=== PATIENT | male | born 1970 | race Caucasian/White ===

== ENCOUNTER → 2018-12-13 | Outpatient (CLI) | payer OTHER ==
--- NOTE | 2018-12-13 13:03 | CONS ---
CONSULTATION DATE OF SERVICE: 12/13/2018 A 48-year-old gentleman who has been evaluated at the [facility] for possible obstructive sleep apnea-hypopnea syndrome. HISTORY OF PRESENT ILLNESS SLEEP WAKE EVALUATION: Patient usual sleep schedule on working days from 10 p.m. until 7 a.m. and on weekends from around 11 p.m. until 9:00 am 7 9:00 am he does have problem with falling asleep. He has TV set in bedroom, usually sleeps on the side position with extremely loud snoring and multiple awakenings from sleep every hour and 3 episodes of nocturia at night in the morning he wakes up tired, has difficulties to pay attention, falling asleep during the day, worries about his sleep, has problems with memory, concentration, depression and anxiety [place] Sleepiness Scale significantly increased to 16. PAST MEDICAL HISTORY: Positive for anxiety, acid reflux, hyperlipidemia, neck and back problems. REVIEW OF SYSTEMS: Multiple awakenings from sleep, significant sleepiness during the day. CURRENT MEDICATIONS: Lexapro, fenofibrate, Lipitor, omeprazole, Risatroptin, Robaxin, Percocet, Lyrica. SOCIAL HISTORY: Negative for smoking. Alcohol consumption extremely rarely. PAST SURGICAL HISTORY: Five lumbar surgeries, 3 cervical surgery, bilateral knees surgeries and then bilateral shoulder surgery for rotator cuff problems. FAMILY HISTORY: Hyperlipidemia, sleep apnea. PHYSICAL EXAM: A gentleman without distress BP 125/83, HR 80, RR 16, height 5 feet 8 inches a 0.5 inches, weight 214 pounds. Body mass index 32.8, temperature 97.5, oxygen saturation at room air 95% oropharynx showed tongue protrudes midline. Extremely low position of soft palate, Mallampati 4, wide neck is 17 inches in circumference. Slight restriction of nasal breathing. ABDOMEN: Obese. PHYSICAL EXAMINATION: GENERAL A pleasant patient without any distress. VITAL SIGNS BP@@ , HR@@ , RR@@, height @@ , weight @@ , BMI @@, temperature @@ , oxygen saturation at room air @@%. HEENT PERRLA, EOMI, evaluation of oropharynx showed tongue protrudes midline. Neck Supple, no JVD. Thyroid is not palpable. LUNGS Clear to percussion and to auscultation. Good air exchange. No wheezing or rhonchi. HEART S1, S2 regular. No murmurs, gallops, or rubs. ABDOMEN Soft and nontender. Bowel sounds are present. No organomegaly appreciated. EXTREMITIES No clubbing or cyanosis. FLIGHT CONTROLS ENGINEER Awake, alert, and oriented X3. Cranial nerves 2 to 7 intact. There is no fasciculation or atrophy. noted. No focal deficits observed. IMPRESSION: 1. Multiple awakenings from sleep with nocturia, extremely low position of soft palate wide neck, sleepiness, [place] Sleepiness Scale 16; obstructive sleep apnea- hypopnea syndrome. 2. Obesity, body mass index 32.83. 3. history of anxiety for acid reflux. 4. History of anxiety. 5. Hyperlipidemia. 6. Status post several neck surgery in the level C3 and C7. 7. Status post 5 lumbar surgeries. 8. Status post bilateral shoulder surgery for rotator cuff problems. PLAN: 1. Polysomnography for evaluation of patient's breathing during sleep. 2. CPAP/BiPAP titration if sleep study confirms obstructive sleep apnea-hypopnea syndrome. 3. Preferable position during sleep on the side. 4. No driving if patient feels any sleepiness. 5. I will see patient for follow up visit to explain results of testing and following plan. Thank you very much for referring this patient for consultation. Sincerely. Toy Prakash MD, PhD, FAASM Diplomat of [place] [employer] [place] [employer] Cook [employer] of [facility] [place] MMODL / IJN: [id number] /
== END | disposition home or self-care (01) ==
LOC: SLEEP 11:42
PROVIDERS: ATTEND Internal Medicine
DX: G47.33 Obstructive sleep apnea (adult) (pediatric) (principal); E66.9 Obesity, unspecified; E78.5 Hyperlipidemia, unspecified; Z68.32 Body mass index [BMI] 32.0-32.9, adult; Z87.19 Personal history of other diseases of the digestive system; Z86.59 Personal history of other mental and behavioral disorders; Z98.890 Other specified postprocedural states; Z79.899 Other long term (current) drug therapy
CPT/HCPCS: 99211

== ENCOUNTER → 2019-02-28 | Outpatient (CLI) | payer OTHER ==
--- NOTE | 2019-02-28 12:00 | SLS ---
SLEEP STUDY DATE OF SERVICE: 02/28/2019 A 48-year-old gentleman who has been followed in the Sleep Center for treatment of obstructive sleep apnea-hypopnea syndrome. Recently, patient had diagnostic polysomnogram and CPAP titration. I discussed results of sleep studies with patient in detail. Polysomnogram showed severe sleep apnea during titration with a high pressure 9. Apnea- hypopnea index reduced to 4.5. Patient received CPAP unit with a pressure 9 and is able to use it every night, but sometimes still snore with the machine and sometimes reading of apnea-hypopnea index showed high numbers. I checked his CPAP unit. CPAP pressure is 9 cm of water. Usage is 100% of nights more than 4 hours with average usage 6.9 hours. Leak 23 L/minute. Apnea-hypopnea index for the last night 3.5,. average for the last month 10.2. [place] Sleepiness Scale today is 17. Patient continued to feel sleepiness. MEDICATIONS: Lexapro, fenofibrate, Lipitor, omeprazole, , Robaxin, Percocet, Lyrica. PHYSICAL EXAM: Patient in no distress. BP 120/70, HR 80, RR 16, weight 221, temp 97.5, oxygen saturation at room air 96%. OROPHARYNX: Extremely low soft palate, Mallampati 4. ABDOMEN: Obese, Neck Supple, no JVD. Thyroid is not palpable. LUNGS Clear to percussion and to auscultation. Good air exchange. No wheezing or rhonchi. HEART S1, S2 regular. No murmurs, gallops, or rubs. EXTREMITIES No clubbing or cyanosis. MANAGER RECRUITMENT Awake, alert, and oriented X3. Cranial nerves 2 to 7 intact. There is no fasciculation or atrophy. noted. No focal deficits observed. IMPRESSION: 1. Extremely severe obstructive sleep apnea-hypopnea syndrome; apnea-hypopnea index 107.4 with oxygen saturation to 75.4%, significantly improved on CPAP with a pressure of 9, but sometimes patient experiencing snoring and narrow reading from the machine showed slightly increased apnea-hypopnea index to 10 for the left month but normal for the last night. Patient demonstrated 100% compliance with treatment benefitting from treatment. 2. Obesity. 3. History of anxiety. 4. Acid reflux. 5. Hyperlipidemia. 6. Status post several neck surgeries. 7. Status post five lumbar surgeries. 8. Status post bilateral shoulder surgery for rotator cuff problems. PLAN: 1. Patient will continue to use CPAP equipment every night for the whole night. 2. I will change the regimen over the pressure to automatic with a maximal pressure of 15 cm of water. 3. Losing weight. 4. Sleep hygiene with regular time in bed for at least 7-1/2 to 8 hours. 5. No driving if feeling sleepiness. Thank you very much for allowing me to participate in the management of your patient. Sincerely Toy Prakash MD, PhD, FAASM Diplomat of [place] [employer] [place] [employer] Director Of Quality Improvement of [facility] [place] MMODL / IJN: [id number] /
== END ==
LOC: SLEEP 09:57
PROVIDERS: ATTEND Internal Medicine
DX: G47.33 Obstructive sleep apnea (adult) (pediatric) (principal); E66.9 Obesity, unspecified; F32.9 Major depressive disorder, single episode, unspecified; K21.9 Gastro-esophageal reflux disease without esophagitis; E78.5 Hyperlipidemia, unspecified; Z98.890 Other specified postprocedural states; Z99.89 Dependence on other enabling machines and devices; Z79.899 Other long term (current) drug therapy; Z79.891 Long term (current) use of opiate analgesic

== ENCOUNTER → 2019-03-08 | Outpatient (CLI) | payer OTHER ==
[2019-03-08 10:08] VITALS: BP 121/81; PULSE 73; RESP 16; TEMP 97.8; BMI 30.8
--- NOTE | 2019-03-08 10:47 | P.GSHP ---
History of Present Illness H&P Date: 03/08/19 Chief Complaint: breast pain The patient is a 48-year-old white male with a complaint of left nipple erection and pain. The patient states this has been ongoing for several years but has gotten worse recently. If he hits that all the pain is worse. He did have an ultrasound performed on 6718 this did not reveal any dominant mass or unusual fluid collection in the left retroareolar region. He has not noted any lumps or masses in his testicles. The patient has no pain in the right breast, and he has no lumps or masses otherwise in either breast. The patient does not drink any caffeinated beverages. He does not smoke. He is not exposed to secondhand smoke on a regular basis. Family History: mother: lung cancer smoker sister: small cell lung cancer, smoker paternal grandmother: scalp cancer Surgical history: cervical and lumbar fusions bilateral shoulder and knee surgery Right mastoidectomy Medical history: 1. High cholesterol 2. reflux on omeprazole for a year Social history: Smoke: Used to chew tobacco does not smoke now Alcohol: Negative Drugs: Negative - Constitutional Comment: BMI 30.8 Constitutional: Denies chills, Denies fever - EENT Comment: wears glasses Eyes: bilateral decreased vision, denies pain Ears: right: decreased hearing, bilateral: tinnitus Ears, nose, mouth and throat: Reports headache, Denies sore throat - Breasts Breasts: bilateral: as per HPI - Cardiovascular Comment: High cholesterol Cardiovascular: Denies chest pain, Denies shortness of breath - Respiratory Respiratory: Denies cough, Denies 7 - Gastrointestinal Comment: reflux - Genitourinary (Male) Genitourinary: Denies dysuria, Denies hematuria - Musculoskeletal Comment: Cervical and lumbar disc disease - Integumentary Integumentary: Denies pruritus, Denies rash - Neurological Neurological: Reports numbness, Reports weakness - Psychiatric Psychiatric: Reports anxiety, Reports depression - Endocrine Endocrine: Denies fatigue, Denies weight change - Hematologic/Lymphatic Comment: none - Allergic/Immunologic Allergic/Immunologic: Reports as per HPI Past Medical History History of Any Multi-Drug Resistant Organisms: None Reported Smoking Status: Never smoker Medications and Allergies Home Medications Medication Instructions Recorded Confirmed Type Atorvastatin [Lipitor] 20 mg PO DAILY 03/08/19 03/08/19 History Escitalopram [Lexapro] 20 mg PO DAILY 03/08/19 03/08/19 History Fenofibrate 40 mg PO DAILY 03/08/19 03/08/19 History Rizatriptan Benzoate [Rizatriptan] 10 mg PO ONCE PRN 03/08/19 03/08/19 History Allergies Allergy/AdvReac Type Severity Reaction Status Date / Time No Known Allergies Allergy Unverified 03/08/19 10:08 Surgical - Exam Vital Signs Temp Pulse Resp BP Pulse Ox 97.8 F 73 16 121/81 95 03/08/19 10:04 03/08/19 10:04 03/08/19 10:04 03/08/19 10:04 03/08/19 10:04 BMI 30.8 - General well developed, well nourished, no distress - Eyes normal ocular movement - ENT no hearing loss - Neck no masses, trachea midline - Respiratory normal expansion, normal respiratory effort, clear to auscultation - Cardiovascular Rhythm: regular Heart Sounds: normal: S1, S2 - Abdomen Abdomen: soft, non tender, no guarding, no rigid, no rebound - Genitourinary no testicular masses normal penis with no external lesions, testicles present, testicles non-tender - Integumentary tattoos new nevis right shoulder - Neurologic no disoriented, no combative - Musculoskeletal normal gait, normal posture - Psychiatric oriented to time, oriented to person, oriented to place, speech is normal, memory intact Breast examination: Right breast: Multi-positional exam no dominant masses or nodules of concern Right axilla: No adenopathy of concern left breast: Multiple positional exam no dominant masses or nodules of concern Left nipple is incorrect and tender to palpation no masses identified Left axilla: No adenopathy of concern Results Ultrasound of left breast Assessment and Plan Assessment: Impression: 1. Mastodynia left nipple area for several years 2. Erection left nipple 3. Fibrocystic changes in breast 4. Family history of cancer 5. High cholesterol 6. Anxiety depression 7. Reflux 8. Obesity 9. No evidence of breast cancer 10. nipple Pain is only on the left side ? eitology Plan: 1. Symptomatic management at this time uncertain as to the etiology of the left nipple discomfort and erection 2. Close surveillance repeat evaluation in 6 months 2. Medical management of medical conditions Cc: Dr. Escamilla
== END ==
LOC: WWCWWP 09:58
PROVIDERS: ATTEND Surgery
DX: Z53.9 Procedure and treatment not carried out, unspecified reason (principal)

== ENCOUNTER → 2019-05-02 | Outpatient (CLI) | payer OTHER ==
--- NOTE | 2019-05-02 12:25 | SFUN ---
SLEEP CENTER FOLLOW UP NOTE DATE OF SERVICE: 05/02/2019 This 48-year-old gentleman had been followed in sleep center for treatment of obstructive sleep apnea-hypopnea syndrome. During his last visit because apnea-hypopnea index was increased to 10.2, I increased maximal range of pressure to 15. Patient continued to use CPAP equipment without significant problems related to mask fitting, pressure or humidification, but he still feels sleepiness during the day. [place] Sleepiness Scale significantly increased to 14. I checked his CPAP unit, range of the pressure 6 to 15, average pressure 12.2. Usage is 30 out of 30 nights and 27 out 30 nights for more than 4 hours with average usage is 6.5 hours which is good compliance. Apnea-hypopnea index for the last month is 3.3, which is normal and for the last night only 1.6. MEDICATIONS: Lexapro, fenofibrate, Lipitor, omeprazole, Robaxin, Percocet, Lyrica. PHYSICAL EXAMINATION: During physical exam, patient in no distress. VITAL SIGNS: BP 124/90, HR 80, RR 16, weight 223, temp 98.5. HEENT: PERRLA, EOMI. Oropharynx extremely low position of soft palpate. Mallampati 4. NECK: Supple, no JVD. Thyroid is not palpable. LUNGS: Clear to percussion and to auscultation. Good air exchange. No wheezing or rhonchi. HEART: S1, S2 regular. No murmurs, gallops, or rubs. ABDOMEN: Slightly obese. EXTREMITIES: No clubbing or cyanosis. CYLINDER STEAMER: Awake, alert, and oriented X3. Cranial nerves 2 to 7 intact. There is no fasciculation or atrophy. noted. No focal deficits observed. IMPRESSION: 1. Obstructive sleep apnea-hypopnea syndrome. Patient demonstrated good compliance with treatment benefitting from treatment. 2. The patient continued to feel sleepiness during the day. [place] Sleepiness Scale significantly increased to 14. Differential diagnosis would include additional diagnosis of hypersomnia. 3. Obesity. 4. History of anxiety. 5. Acid reflux. 6. Hyperlipidemia. 7. Status post several neck surgeries. 8. Status post five lumbar surgeries. Patient is preparing for another lumbar surgery. 9. Status post bilateral shoulder surgery for rotator cuff problems. PLAN: 1. Multiple sleep latency test for objective evaluation of symptoms of excessive daytime sleepiness after the night on treatment with CPAP. 2. Losing weight. 3. Sleep hygiene with regular time in bed for 7-1/2 hours. 4. No driving if feeling sleepiness. 5. Patient will continue to use CPAP equipment every night for the whole night. Thank you very much for allowing me to participate in management of your patient. Sincerely, Toy Prakash MD, PhD, FAASM Diplomat of [place] [employer] [place] [employer] Hand Tapper of [facility] [place] MMODL / KEVINN: [id number] /
== END | disposition home or self-care (01) ==
LOC: SLEEP 11:08
PROVIDERS: ATTEND Internal Medicine
DX: G47.33 Obstructive sleep apnea (adult) (pediatric) (principal); K21.9 Gastro-esophageal reflux disease without esophagitis; E78.5 Hyperlipidemia, unspecified; E66.9 Obesity, unspecified; Z98.890 Other specified postprocedural states; Z86.59 Personal history of other mental and behavioral disorders; Z99.89 Dependence on other enabling machines and devices

== ENCOUNTER → 2019-09-06 | Outpatient (CLI) | payer OTHER ==
[2019-09-06 14:54] VITALS: BP 143/85; PULSE 85; RESP 18; TEMP 97.9
--- NOTE | 2019-09-06 15:45 | P.PN ---
Subjective Progress Note Date: 09/06/19 Principal diagnosis: nipple pain/erection The patient is a 48-year-old white male with a complaint of left nipple erection and pain. The patient states this has been ongoing for several years but has gotten worse recently. If he hits that all the pain is worse. He did have an ultrasound performed on 6719 this did not reveal any dominant mass or unusual fluid collection in the left retroareolar region. He has not noted any lumps or masses in his testicles. The patient has no pain in the right breast, and he has no lumps or masses otherwise in either breast. The patient does not drink any caffeine beverages. He does not smoke. He is not exposed to secondhand smoke on a regular basis. The patient states he has had no change in the nipple erection or discomfort. It occurs on a daily basis. It is asymmetric on the right side. It occurs with any pressure or anything rubs against it. It is worse in the warm weather. This has been occurring for years. caffeine: occasional smoke: none chocolate: none Family History: mother: lung cancer smoker sister: small cell lung cancer, brain cancer smoker paternal grandmother: scalp cancer Surgical history: cervical and lumbar fusions bilateral shoulder and knee surgery Right mastoidectomy lumbar fusion in June 2019 [id number] Medical history: 1. High cholesterol 2. reflux on omeprazole for a year Social history: Smoke: Used to chew tobacco does not smoke now Alcohol: Negative Drugs: Negative - Constitutional Comment: BMI 30.8 Constitutional: Denies chills, Denies fever - EENT Comment: wears glasses Eyes: bilateral decreased vision, denies pain Ears: right: decreased hearing, bilateral: tinnitus Ears, nose, mouth and throat: Reports headache, Denies sore throat - Breasts Breasts: bilateral: as per HPI - Cardiovascular Comment: High cholesterol Cardiovascular: Denies chest pain, Denies shortness of breath - Respiratory Respiratory: Denies cough - Gastrointestinal Comment: reflux - Genitourinary (Male) Genitourinary: Denies dysuria, Denies hematuria - Musculoskeletal Comment: Cervical and lumbar disc disease - Integumentary Integumentary: Denies pruritus, Denies rash - Neurological Neurological: Reports numbness, Reports weakness - Psychiatric Psychiatric: Reports anxiety, Reports depression - Endocrine Endocrine: Denies fatigue, Denies weight change - Hematologic/Lymphatic Comment: none - Allergic/Immunologic Allergic/Immunologic: Reports as per HPI Past Medical History History of Any Multi-Drug Resistant Organisms: None Reported Smoking Status: Never smoker Objective - Vital Signs Vital signs: Vital Signs Temp 97.9 F 09/06/19 14:50 Pulse 85 09/06/19 14:50 Resp 18 09/06/19 14:50 BP 143/85 09/06/19 14:50 Pulse Ox 98 09/06/19 14:50 Intake & Output 09/05/19 09/06/19 09/06/19 18:59 06:59 18:59 Weight 97.522 kg - Exam BMI 30.8 - Constitutional General appearance: Present: average body habitus - EENT Eyes: Present: EOMI ENT: Present: hearing grossly normal - Neck Details: no adenopathy of concern Neck: Present: normal ROM - Respiratory Respiratory: bilateral: CTA - Cardiovascular Rhythm: regular Heart sounds: normal: S1, S2 - Gastrointestinal Gastrointestinal Comment(s): no organomegaly General gastrointestinal: Present: normal bowel sounds, soft - Integumentary Integumentary: Present: normal turgor - Musculoskeletal Musculoskeletal: Present: gait normal - Psychiatric Psychiatric: Present: A&O x's 3, appropriate affect, intact judgment & insight - Additional findings Additional findings: breast exam: Inspection: No skin lesions of concern, the left nipple is slightly larger than the right nipple otherwise not been of concern nipples are not inverted Palpation: Right breast: Multi-positional exam changes of gynecomastia no discrete dominant masses or nodules of concern Right axilla: No adenopathy of concern Left breast: Multi-positional exam gynecomastia, left nipple slightly larger than the right nipple there is nothing palpable of concern at this time it is not erect on today's exam Assessment and Plan Assessment: Impression: 1. Mastodynia left nipple for several years 2. Erection left nipple intermittently 3. Fibrocystic changes in breast 4. Family history of cancer 5. High cholesterol 6. Anxiety/depression 7. Reflux 8. No evidence of breast cancer Plan: 1. Patient is going to stop his caffeine intake 2. Patient is going to implement primrose oil 3. Repeat left breast ultrasound in 6 months time 4. Patient is anything of concern he will call us sooner 5. Position exam in 6 months Cc: Dr. Francine Encounter 20 minutes > 50% of time spent in counselling and planning Time with Patient: Less than 30
== END | disposition home or self-care (01) ==
LOC: WWCWWP 14:39
PROVIDERS: ATTEND Surgery
DX: Z53.9 Procedure and treatment not carried out, unspecified reason (principal)

== ENCOUNTER → 2020-03-09 | Outpatient (CLI) | payer OTHER ==
--- NOTE | 2020-03-09 10:50 | USB ---
Reason for exam: clinical finding. Indicated problem(s): pain in the left breast. Physical Findings: Nurse Summary: Patient complains of left nipple pain x 1 year (nurse mj). US Breast LT Technologist: Danica Salas Left complete breast ultrasound includes all four quadrants, the retroareolar region and axilla. Finding demonstrates no cystic or solid lesion seen. These results were verbally communicated with the patient and result sheet given to the patient on 03/09/20. ASSESSMENT: Negative, BI-RAD 1 RECOMMENDATION: Clinical management of the left breast. Manage patient on a clinical basis.
== END ==
LOC: RADUSWWP 10:09
PROVIDERS: ATTEND Surgery
DX: N64.4 Mastodynia (principal)

== ENCOUNTER → 2020-11-19 | Outpatient (CLI) | payer OTHER ==
--- NOTE | 2020-11-20 06:06 | SFUN ---
SLEEP CENTER FOLLOW UP NOTE DATE OF SERVICE: 11/19/2020 INTERVAL HISTORY: A 50-year-old gentleman who has been followed in the Sleep Center for treatment of obstructive sleep apnea-hypopnea syndrome. I saw the patient about 1 and half years ago. He continued to use his CPAP equipment every night. Sleeps well with the machine, but he continued to feel sleepiness during the day in a significant range. According to patient, as soon as he is not doing anything he is falling asleep. [place] Sleepiness Scale today is in very high range of 19. I checked CPAP unit. Range of the pressure is 6-15 with average pressure 12.5 and usage 28/30 nights for more than 4 hours with average usage is 7.7 hours per night. Leak is 20 L/minute. Apnea-hypopnea index is in normal range 2.3. MEDICATIONS: Fenofibrate, Robaxin. PHYSICAL EXAMINATION: GENERAL: Patient without any distress. VITAL SIGNS: BP 132/88, HR 84 , RR 12, height 5'9", weight 228.4, temperature 98.2, oxygen saturation at room air 97%. HEENT: PERRLA, EOMI, evaluation of oropharynx showed tongue protrudes midline. Extremely low position of soft palate, Mallampati IV. NECK: Supple, no JVD. Thyroid is not palpable. LUNGS: Clear to percussion and to auscultation. Good air exchange. No wheezing or rhonchi. HEART: S1, S2 regular. No murmurs, gallops, or rubs. ABDOMEN: Slightly obese, soft and nontender. Bowel sounds are present. No organomegaly appreciated. EXTREMITIES: No clubbing or cyanosis. QUALITY ASSURANCE INSPECTOR: Awake, alert, and oriented X3. Cranial nerves 2 to 7 intact. There is no fasciculation or atrophy. noted. No focal deficits observed. IMPRESSION: 1. Obstructive sleep apnea-hypopnea syndrome. Patient demonstrated good compliance with treatment, benefitting from treatment. 2. The patient continues to feel significant sleepiness during the day. [place] Sleepiness Scale increased to 19. Differential diagnosis include additional diagnosis of hypersomnia or narcolepsy. Positive family history of narcolepsy. 3. Obesity. 4. History of anxiety. 5. Acid reflux. 6. Hyperlipidemia. 7. Status post several neck surgeries. 8. Status post 5 lumbar surgeries. 9. Status post bilateral shoulder surgery for rotator cuff problems. PLAN: Multiple sleep latency test after the night on CPAP for objective evaluation of patient's symptoms of excessive daytime sleepiness. 1. Patient will continue to use PAP equipment every night for the whole night. 2. Sleep hygiene with regular time in bed for at least 7-1/2 to 8 hours. 3. Precautions related to driving. No driving if feeling sleepiness. 4. I will maintain all necessary prescription for PAP supplies including mask, tube, filters. 5. Watching weight. 6. Followup visit after sleep study to discuss results and plan. Thank you very much for allowing me to participate in the management of your patient. Sincerely, Toy Prakash MD, PhD, FAASM Diplomat of [place] [employer] [place] [employer] Medicine Tank Truck Driver of [facility] [place] MMODL / KEVINN: [id number] /
== END ==
LOC: SLEEP 15:26
PROVIDERS: ATTEND Internal Medicine
DX: G47.33 Obstructive sleep apnea (adult) (pediatric) (principal); E66.9 Obesity, unspecified; K21.9 Gastro-esophageal reflux disease without esophagitis; E78.5 Hyperlipidemia, unspecified; F41.9 Anxiety disorder, unspecified; Z98.890 Other specified postprocedural states; Z99.89 Dependence on other enabling machines and devices

== ENCOUNTER → 2021-02-03 | Outpatient (CLI) | payer OTHER ==
--- NOTE | 2021-02-03 21:25 | SFUN ---
SLEEP CENTER FOLLOW UP NOTE DATE OF SERVICE: 02/03/2021 50-year-old gentleman has been followed in Sleep Center for treatment of obstructive sleep apnea-hypopnea syndrome and also to discuss results of the recently done multiple sleep latency test after night on CPAP therapy. I discussed results of the sleep study with the patient in detail. During the night on the CPAP therapy, his respiration was fully controlled and sleep efficiency was high 92.2%. On the following day after that, the patient has MSLT consisted of 4 naps and mean sleep latency was very short only 3.6 minutes and 2 sleep onset REM periods have been documented during MSLT, which indicate possibly narcolepsy. [place] Sleepiness Scale today 14. MEDICATIONS: Fenofibrate, Robaxin. PHYSICAL EXAMINATION: GENERAL: Patient in no distress. BP 163/109, HR 94, RR 15, temperature 97.3, oxygen saturation at room air 98%. Weight 226.6 pounds. HEENT: PERRLA, EOMI. Oropharynx low position of soft palate. NECK: Supple, no JVD. Thyroid is not palpable. LUNGS: Clear to percussion and to auscultation. Good air exchange. No wheezing or rhonchi. HEART: S1, S2 regular. No murmurs, gallops, or rubs. ABDOMEN: Soft and nontender. Bowel sounds are present. No organomegaly appreciated. EXTREMITIES: No clubbing or cyanosis. SOLUTION DESIGN ENGINEER: Awake, alert, and oriented X3. Cranial nerves 2 to 7 intact. There is no fasciculation or atrophy. noted. No focal deficits observed. IMPRESSION: 1. Obstructive sleep apnea-hypopnea syndrome on full control with CPAP. Presently patient's CPAP unit broken. 2. Pathological sleepiness on MSLT. Mean sleep latency is 3.6 minutes with 2 sleep onset REM periods, which indicate possible narcolepsy. 3. Obesity. 4. Anxiety. 5. Acid reflux. 6. Hyperlipidemia. 7. Status post five lumbar surgeries. 8. Status post bilateral shoulder surgery. PLAN: 1. Prescription for new CPAP unit automatic regimen pressure 5-15 and Brevida nasal pillow mask and all necessary CPAP supplies. 2. Prescription for Adderall 5 mg one tablet in the morning and one tablet in early afternoon to prevent sleepiness. Necessary dose will be adjusted. 3. Sleep hygiene with regular time in bed for 7-1/2 to 8 hours. 4. Daytime naps permitted. 5. Precautions related to driving. No driving while feeling sleepiness. 6. Follow-up visit in 2 months to review to check the patient compliance with a new CPAP unit and make any necessary adjustments related to CPAP therapy and evaluate response on treatment with Adderall. Thank you very much for allowing me to participate in management of your patient. Sincerely, Toy Prakash MD, PhD, FAASM Diplomat of [employer] of [employer] Medicine Care Professional of [facility] [place] MMODL / RELL: [id number] /
== END ==
LOC: SLEEP 11:33
PROVIDERS: ATTEND Internal Medicine
DX: G47.33 Obstructive sleep apnea (adult) (pediatric) (principal); E66.9 Obesity, unspecified; K21.9 Gastro-esophageal reflux disease without esophagitis; F41.9 Anxiety disorder, unspecified; E78.5 Hyperlipidemia, unspecified; Z98.890 Other specified postprocedural states; Z99.89 Dependence on other enabling machines and devices

== ENCOUNTER → 2022-03-23 | Outpatient (CLI) | payer OTHER ==
--- NOTE | 2022-03-23 12:15 | P.PN ---
Subjective DATE: 03/23/2022 FOLLOW UP VISIT. Patient with obstructive sleep apnea hypopnea syndrome and possible narcolepsy return to sleep center for follow-up visit. Information from previous visit have been reviewed. Patient is on Adderall 30 mg twice a day for treatment of significant excessive daytime sleepiness confirmed by multiple sleep latency test. Patient is using PAP equipment every night for the whole night, getting PAP supplies in time. The patient does not have significant problems with the mask, PAP unit and humidification. She feels that when he is starting to use CPAP unit the pressure is too low. [place] sleepiness scale is 19. I checked PAP unit. PAP unit pressure 6-15 average 11.9 cm H2O. Usage is 93 % for more then 4 hours, average 7.5 hours per night. Leak is 13.7 l/m, which is in acceptable range. Apnea Hypopnea Index is 1.5, which is normal. A ramp is 30 minutes started at 6 cm of water. MEDICATIONS:1. Adderall 20 mg 3 tablets a day, patient take 1-1/2 tablet in the morning and 1-1/2 tablet at to 1 PM. 2. Fenofibrate once a day 3. Atorvastatin once a day 4. Rizatriptan as needed During physical exam: GENERAL: A pleasant patient without any distress. VITAL SIGNS: BP 159/101, HR 96, RR 16, weight 214.8, temperature 97.5, oxygen saturation at room air 100 % . HEENT: PERRLA, EOMI.low position of soft palate. NECK: Supple. No JVD. LUNGS: Clear to percussion and to auscultation. Good air exchange. No wheezing or rhonchi. HEART: S1, S2 regular. ABDOMEN: Soft and nontender. Slightly obese EXTREMITIES: No clubbing or cyanosis. DUCT MAKER: Awake, alert, and oriented x3. No focal deficit. Impressions: 1. Obstructive sleep apnea-hypopnea syndrome. Patient demonstrated great compliance with treatment, benefiting from treatment. 2. Narcolepsy confirmed by multiple sleep latency test with mean sleep latency 3.6 minutes and to sleep onset REM periods. Patient is on treatment with Adderall presently at maximal dose 60 mg a day. That allowed him to control his alertness. 3. Obesity. 4. Anxiety. 5. Acid reflux. 6. Hyperlipidemia. 7. Status post bilateral shoulder surgery. 8. Status post 5 lumbar surgeries. Plan: 1. Continue using PAP equipment every night for the whole night. 2. To change air filter at least 1-2 times per month. 3. PAP unit should stay lower then position of the head. 4. Advised patient to remove all remaining water from humidifier canister daily and make it dry after each usage. Refill canister with fresh distilled water before each usage. 5. Sleep hygiene with regular time in bed for at least 8 hours. 6. Precautions related to driving. No driving if feel any sleepiness. 7. I will maintain prescription for PAP supplies including mask, tube, filters. 8. Follow up visit in 6 months or earlier if patient has any problems. 9. Watching and losing weight. 10. Continue Adderall 30 mg at 8 AM and 30 mg at 1 PM. Prescription for Adderall 20 mg 90 tablets per months. 11. Low sodium diet, monitoring blood pressure. Thank you very much for allowing me to participate in the management of your patient. Toy Prakash MD, PhD, FAASM. Diplomat of [place], Sleep Medicine Board by [place] Medicine Masonry Installer of [facility] [place]
== END ==
LOC: SLEEP 10:51
PROVIDERS: ATTEND Internal Medicine
DX: G47.33 Obstructive sleep apnea (adult) (pediatric) (principal); E66.9 Obesity, unspecified; F41.9 Anxiety disorder, unspecified; E78.5 Hyperlipidemia, unspecified; Z98.890 Other specified postprocedural states; Z99.89 Dependence on other enabling machines and devices; Z79.899 Other long term (current) drug therapy

== ENCOUNTER → 2023-03-29 | Outpatient (CLI) | payer OTHER ==
--- NOTE | 2023-03-29 11:50 | P.PN ---
Subjective DATE: 03/29/2023 FOLLOW UP VISIT. Patient with obstructive sleep apnea hypopnea syndrome and narcolepsy return to sleep center for follow-up visit. Information from previous visit have been reviewed. Patient is using PAP equipment every night for the whole night, getting PAP supplies in time. The patient does not have significant problems with the mask, PAP unit and humidification. Sometimes patient feels that is not enough pressure. [place] sleepiness scale is high 19. I checked information from PAP unit. PAP unit pressure 8-17, average 12.0 cm H2O. Usage is 100 % for more then 4 hours, average 7.5 hours per night. Leak is 17.2 l/m, which is in acceptable range. Apnea Hypopnea Index is 1.2, which is normal. MEDICATIONS:1. Adderall 30 mg twice a day 2. Atorvastatin 20 mg once a day 3. Fenofibrate 160 mg once a day 4. Butrans patch 5. Oxycodoneacetaminophen 96039 6. Pregabalin 300 mg capsules once a day 7. Alprazolam During physical exam: GENERAL: A pleasant patient without any distress. VITAL SIGNS: BP 132/87, HR 82, RR 14 , weight 214, temperature 98.0, oxygen saturation at room air 97 % . HEENT: PERRLA, EOMI.low position of soft palate, Mallapati 3 . NECK: Supple. No JVD. LUNGS: Clear to percussion and to auscultation. Good air exchange. No wheezing or rhonchi. HEART: S1, S2 regular. ABDOMEN: Soft and nontender. Obese EXTREMITIES: No clubbing or cyanosis. GLOBE CHANGER: Awake, alert, and oriented x3. No focal deficit. Impressions: 1. Obstructive sleep apnea-hypopnea syndrome. Patient demonstrated great compliance with treatment, benefiting from treatment. 2. Narcolepsy, confirmed by multiple sleep latency test, mean sleep latency 3.6 minutes and to sleep onset REM periods. 3. Back problems, back pain, patient is preparing for back surgery. Status post 5 lumbar surgeries. 4. History of anxiety. 5. Obesity, patient lost 3 pounds since previous visit. 6. Hyperlipidemia. 7. Acid reflux. 8. Status post bilateral shoulder surgery. Plan: 1. Continue using PAP equipment every night for the whole night. 2. To change air filter at least 1-2 times per month. 3. PAP unit should stay lower then position of the head. 4. Advised patient to remove all remaining water from humidifier canister daily and make it dry after each usage. Refill canister with fresh distilled water before each usage. 5. Sleep hygiene with regular time in bed for at least 8 hours. 6. Precautions related to driving. No driving if feel any sleepiness. 7. I will maintain prescription for PAP supplies including mask, tube, filters. 8. Watching and losing weight. 9. Follow up visit in 6 months or earlier if patient has any problems. Thank you very much for allowing me to participate in the management of your patient. Toy Prakash MD, PhD, FAASM. Diplomat of [place] Board of [employer] Medicine, Sleep Medicine Board by [place] Board of Internal Medicine Bar Tacker Sewing Machine of [facility] [place]
== END ==
LOC: 3 N SLEEP 11:19
PROVIDERS: ATTEND Internal Medicine
DX: G47.33 Obstructive sleep apnea (adult) (pediatric) (principal); G47.419 Narcolepsy without cataplexy; F41.9 Anxiety disorder, unspecified; E78.5 Hyperlipidemia, unspecified; M54.50 Low back pain, unspecified; E66.9 Obesity, unspecified; K21.9 Gastro-esophageal reflux disease without esophagitis; Z79.899 Other long term (current) drug therapy; Z99.89 Dependence on other enabling machines and devices; Z98.890 Other specified postprocedural states
CPT/HCPCS: 99212

== ENCOUNTER → 2023-05-23 | Outpatient (CLI) | payer OTHER ==
--- NOTE | 2023-05-23 20:12 | MM ---
Reason for Exam: Clinical finding. Indicated Problems: Pain of the left side (Focal) for 5 Year(s). Prior Study Comparison: 03/09/2020 Left Diagnostic Ultrasound, [facility]. Tissue Density: There are scattered fibroglandular densities. Findings: Analyzed By CAD. A few scattered punctate dermal calcifications are noted. Overall Assessment: Negative, BI-RAD 1 Management: Screening Mammogram of both breasts in 1 year. . Results were given to the patient verbally at the time of exam. Patient should continue monthly self-breast exams. A clinical breast exam by your physician is recommended on an annual basis. This exam should not preclude additional follow-up of suspicious palpable abnormalities. Electronically signed and approved by: Erik Del Castillo M.D. Radiologist
== END | disposition home or self-care (01) ==
LOC: RADMAMWWP 13:38
PROVIDERS: ATTEND Surgery
DX: R92.1 Mammographic calcification found on diagnostic imaging of breast (principal); N62 Hypertrophy of breast; N64.4 Mastodynia
CPT/HCPCS: 82672; 84403; 77066; G0279; 77062

== ENCOUNTER → 2023-06-02 | Outpatient (CLI) | payer OTHER ==
--- NOTE | 2023-06-02 15:26 | USB ---
Reason for Exam: Clinical finding. Technique: Method: Whole Breast Handheld. Prior Study Comparison: 05/23/2023 Bilateral MG 3D diag mammo w/cad [facility], [facility]. Findings: The whole breast of the left breast, the axilla of the left breast and the retroareolar of the left breast were scanned. No solid or cystic masses are identified.. Overall Assessment: Negative, BI-RAD 1 Management: Clinical Management of the left breast. Electronically signed and approved by: Lc Wu M.D. Radiologis
== END | disposition home or self-care (01) ==
LOC: RADUSWWP 09:13
PROVIDERS: ATTEND Surgery
DX: N64.4 Mastodynia (principal)

== ENCOUNTER → 2023-06-02 | Outpatient (CLI) | payer OTHER ==
--- NOTE | 2023-06-02 09:04 | P.PN ---
Progress Note - Text Progress Note Date: 06/02/23 Mr. Solis underwent a bilateral mammogram on . This was benign BIRAD 1. Additionally he had estrogen levels tested which were within the normal range 60 to the range being 40-115 and he had testosterone level tested which wasn't the normal range 95.5. The patient has persistent left nipple erection. At this time we are going to get a ultrasound of the left breast behind the nipple areolar complex and he will see me again after this is done. At this time there is nothing which would warrant interventional biopsy. CC: DR. Escamilla
[2023-06-02 09:12] VITALS: BP 144/88; PULSE 94; RESP 16; TEMP 98.3
== END ==
LOC: WWCWWP 08:43
PROVIDERS: ATTEND Surgery
DX: N64.59 Other signs and symptoms in breast (principal)

== ENCOUNTER → 2023-09-27 | Outpatient (CLI) | payer OTHER ==
--- NOTE | 2023-09-27 12:01 | P.PN ---
Subjective DATE: 09/27/2023 FOLLOW UP VISIT. Patient with obstructive sleep apnea hypopnea syndrome and narcolepsy return to sleep center for follow-up visit. Information from previous visit have been reviewed. Patient is on treatment with Adderall 30 mg twice a day, no side effects. Patient is using PAP equipment every night for the whole night, getting PAP supplies in time. Patient feels that sometimes pressure is not enough when he is starting to use CPAP equipment. [place] sleepiness scale is increased to 19. I checked information from PAP unit. PAP unit pressure 9-17, average 13.1 cm H2O. Usage is 100 % for more then 4 hours, average 7.1 hours per night. Leak is 17 l/m, which is in acceptable range. Apnea Hypopnea Index is 1.2, which is normal. MEDICATIONS:1. Adderall 30 mg twice a day 2. Fenofibrate 160 mg once a day 3. Atorvastatin 20 mg once a day 4. Omeprazole as needed During physical exam: GENERAL: A pleasant patient without any distress. VITAL SIGNS: BP 143/91, HR 87, RR 16, weight 231.8, temperature 97.9, oxygen saturation at room air 95 % . HEENT: PERRLA, EOMI.low position of soft palate, Mallapati 3 . NECK: Supple. No JVD. LUNGS: Clear to percussion and to auscultation. Good air exchange. No wheezing or rhonchi. HEART: S1, S2 regular. ABDOMEN: Soft and nontender.[] EXTREMITIES: No clubbing or cyanosis. TRAVELING SECRETARY: Awake, alert, and oriented x3. No focal deficit. I increased range of pressure to the level 10-17 centimeters of water. Impressions: 1. Obstructive sleep apnea-hypopnea syndrome. Patient demonstrated great compliance with treatment, benefiting from treatment. 2. Narcolepsy confirmed by Lyndsey PAINTER. Mean sleep latency was 3.6 minutes and 2 sleep onset REM periods have been documented. 3. Obesity, patient increased his weight on 17 pounds comparing to the previous visit. 4. History of anxiety. 5. Back problems, status post recent back surgery. 6. Hyperlipidemia. 7. Acid reflux. 8. Status post bilateral shoulder surgery. Plan: 1. Continue using PAP equipment every night for the whole night. 2. To change air filter at least 1-2 times per month. 3. PAP unit should stay lower then position of the head. 4. Advised patient to remove all remaining water from humidifier canister daily and make it dry after each usage. Refill canister with fresh distilled water before each usage. 5. Sleep hygiene with regular time in bed for at least 8 hours. 6. Precautions related to driving. No driving if feel any sleepiness. 7. I will maintain prescription for PAP supplies including mask, tube, filters. 8. Follow up visit in 6 months or earlier if patient has any problems. 9. Watching and losing weight. 10. I will maintain prescription for Adderall 30 mg twice a day. Thank you very much for allowing me to participate in the management of your patient. Toy Prakash MD, PhD, FAASM. Diplomat of [place] [employer] Sleep Medicine, Sleep Medicine Board by [place] [employer] of Internal Medicine Act English Tutor of [facility] [place]
== END ==
LOC: 3 N SLEEP 11:14
PROVIDERS: ATTEND Internal Medicine
DX: G47.33 Obstructive sleep apnea (adult) (pediatric) (principal); G47.419 Narcolepsy without cataplexy; G47.52 REM sleep behavior disorder; E66.9 Obesity, unspecified; E78.5 Hyperlipidemia, unspecified; M51.9 Unspecified thoracic, thoracolumbar and lumbosacral intervertebral disc disorder; F41.9 Anxiety disorder, unspecified; K21.9 Gastro-esophageal reflux disease without esophagitis; Z98.890 Other specified postprocedural states; Z99.89 Dependence on other enabling machines and devices
CPT/HCPCS: 99212

== ENCOUNTER → 2023-12-08 | Outpatient (CLI) | payer OTHER ==
[2023-12-08 11:28] VITALS: BP 138/92; PULSE 77; RESP 16; TEMP 97.8
--- NOTE | 2023-12-08 11:28 | P.PN ---
Subjective Progress Note Date: 12/08/23 Principal diagnosis: nipple pain erection 12-08-23 Principal diagnosis: pain left nipple nipple pain/erection Bruno is a 53 year old man seen in consultation for Dr. Escamilla regarding breast pain. The patient was seen initially approximately 3 years ago with complaint of pain in the left breast. Since that time the pain has not stopped and has actually gotten worse. He states that the nodularity behind the nipple has not increased in size. Has not had any recent breast ultrasounds. His never had any surgery on his breast. Is not complaining of any recent trauma or infection in the breast. The nipple stays erect most of the time on the left breast and is tender. He has not had any changes in any medications. He states that it is worse when it is hot and humid. The right side does not cause him any discomfort. It is always painful. It has not improved. The patient would like to have an excisional resection of the nipple areolar complex on the left secondary to the pain and discomfort. Additionally the patient has concerns regarding the possibility of malignancy of the nipple areolar complex on the left. bilateral mammogram 05-23-22 BIRAD 1 ultrasound left 06-02-23 no lesions of concern testosterone: 95.5 WNL estrogen: 62 WNL The pain has not chaged. Caffeine: Negative Nicotine: Negative Chocolate: Occasional Hormones: Negative Family History: mother: lung cancer smoker sister: small cell lung cancer, brain cancer smoker paternal grandmother: scalp cancer Surgical history: cervical and lumbar fusions bilateral shoulder and knee surgery Right mastoidectomy lumbar fusion in June 2019 T12-S1 lumbar surgery 2022 healed at this time Medical history: 1. High cholesterol 2. reflux on omeprazole 3. used a cane in the past Social history: Smoke: Used to chew tobacco does not smoke now Alcohol: Negative Drugs: Negative - Constitutional Comment: BMI 28 Constitutional: Denies chills, Denies fever - EENT Comment: wears glasses Eyes: bilateral decreased vision, denies pain Ears: right: decreased hearing, bilateral: tinnitus Ears, nose, mouth and throat: Reports headache, Denies sore throat - Breasts Breasts: bilateral: as per HPI - Cardiovascular Comment: High cholesterol Cardiovascular: Denies chest pain, Denies shortness of breath - Respiratory Respiratory: Denies cough - Gastrointestinal Comment: reflux - Genitourinary (Male) Genitourinary: Denies dysuria, Denies hematuria - Musculoskeletal Comment: Cervical and lumbar disc disease - Integumentary Integumentary: Denies pruritus, Denies rash - Neurological Neurological: Reports numbness, Reports weakness - Psychiatric Psychiatric: Reports anxiety, Reports depression - Endocrine Endocrine: Denies fatigue, Denies weight change - Hematologic/Lymphatic Comment: none - Allergic/Immunologic Allergic/Immunologic: Reports as per HPI Past Medical History History of Any Multi-Drug Resistant Organisms: None Reported Smoking Status: Never smoker Objective - Vital Signs Vital signs: Vital Signs Temp 97.8 F 12/08/23 10:47 Pulse 77 12/08/23 10:47 Resp 16 12/08/23 10:47 BP 138/92 12/08/23 10:47 Pulse Ox 96 12/08/23 10:47 FiO2 Intake & Output 12/07/23 12/08/23 12/08/23 18:59 06:59 18:59 Weight 90.718 kg - Constitutional General appearance: Present: cooperative - EENT Eyes: Present: EOMI ENT: Present: hearing grossly normal - Neck Neck: Present: normal ROM - Respiratory Respiratory: bilateral: CTA - Cardiovascular Rhythm: regular Heart sounds: normal: S1, S2 - Integumentary Integumentary: Present: normal turgor - Musculoskeletal Musculoskeletal: Present: gait normal - Psychiatric Psychiatric: Present: A&O x's 3, appropriate affect, intact judgment & insight - Additional findings Additional findings: testicular exam: done on last exam WNL; patient declined today Assessment and Plan Assessment: Impression: 1. Mastodynia left breast for several years 2. Erection left nipple intermittently 3. Fibrocystic changes in breast 4. Family history of cancer 5. High cholesterol 6. Anxiety/depression 7. Reflux 8. No evidence of breast cancer on todays exam 1. Recent lumbar fusion surgery/cheri are still in place Plan: 1. Excisional biopsy/resection of left nipple areolar complex with possible oncoplastic tissue transfer Risk and benefits of the procedure discussed with the patient. Risk include but are not limited to bleeding, infection, reaction to the anesthetic. He understands that the nipple and areola will be removed without any reconstruction of those structures. They will not grow back. We may not find any pathology with the resection however it is asymmetric to the other side it is constantly painful and we are uncertain as to the cause for it. He understands and wishes to proceed. We cannot rule out malignant pathology without resection. CC: Dr. Escamilla
== END ==
LOC: WWCWWP 10:31
PROVIDERS: ATTEND Surgery
DX: R92.8 Other abnormal and inconclusive findings on diagnostic imaging of breast (principal); N64.4 Mastodynia; N64.59 Other signs and symptoms in breast; E78.00 Pure hypercholesterolemia, unspecified; F32.A Depression, unspecified; F41.9 Anxiety disorder, unspecified; K21.9 Gastro-esophageal reflux disease without esophagitis; N60.19 Diffuse cystic mastopathy of unspecified breast

== ENCOUNTER → 2023-12-22 | Outpatient (CLI) | payer OTHER ==
--- NOTE | 2023-12-22 08:45 | P.BCPRE ---
History of Present Illness H&P Date: 12/22/23 Chief Complaint: mass breast nipple pain erection 12-08-23 Principal diagnosis: pain left nipple nipple pain/erection Bruno is a 53 year old man seen in consultation for Dr. Escamilla regarding breast pain. The patient was seen initially approximately 3 years ago with complaint of pain in the left breast. Since that time the pain has not stopped and has actually gotten worse. He states that the nodularity is persistent behind the left nipple areolar complex and has increased in intensity of pain and size. His never had any surgery on his breast. Is not complaining of any recent trauma or infection in the breast. The nipple stays erect most of the time on the left breast and is tender. He has not had any changes in any medications. He states that it is worse when it is hot and humid. The right side does not cause him any discomfort. It is always painful. It has not improved. The patient would like to have an excisional resection of the nipple areolar complex on the left secondary to the pain and discomfort. Additionally the patient has concerns regarding the possibility of malignancy of the nipple areolar complex on the left. bilateral mammogram 05-23-23 BIRAD 1 ultrasound left 06-02-23 no lesions of concern testosterone: 95.5 WNL estrogen: 62 WNL The pain has not changed. Caffeine: Negative Nicotine: Negative Chocolate: Occasional Hormones: Negative Family History: mother: lung cancer smoker sister: small cell lung cancer, brain cancer smoker paternal grandmother: scalp cancer Surgical history: cervical and lumbar fusions bilateral shoulder and knee surgery Right mastoidectomy lumbar fusion in June 2019 T12-S1 lumbar surgery 2022 healed at this time Medical history: 1. High cholesterol 2. reflux on omeprazole 3. used a cane in the past Social history: Smoke: Used to chew tobacco does not smoke now Alcohol: Negative Drugs: Negative - Constitutional Comment: BMI 28 Constitutional: Denies chills, Denies fever - EENT Comment: wears glasses Eyes: bilateral decreased vision, denies pain Ears: right: decreased hearing, bilateral: tinnitus Ears, nose, mouth and throat: Reports headache, Denies sore throat - Breasts Breasts: bilateral: as per HPI - Cardiovascular Comment: High cholesterol Cardiovascular: Denies chest pain, Denies shortness of breath - Respiratory Respiratory: Denies cough - Gastrointestinal Comment: reflux - Genitourinary (Male) Genitourinary: Denies dysuria, Denies hematuria - Musculoskeletal Comment: Cervical and lumbar disc disease - Integumentary Integumentary: Denies pruritus, Denies rash - Neurological Neurological: Reports numbness, Reports weakness - Psychiatric Psychiatric: Reports anxiety, Reports depression - Endocrine Endocrine: Denies fatigue, Denies weight change - Hematologic/Lymphatic Comment: none - Allergic/Immunologic Allergic/Immunologic: Reports as per HPI Past Medical History History of Any Multi-Drug Resistant Organisms: None Reported Smoking Status: Never smoker Consent for Procedure: I have explained the operation/procedure to the patient, including the risks, benefits, side effects, alternative therapies (including not receiving the proposed treatment or service), the likelihood of the patient achieving his/her goals, and potential recuperation problems for the procedure/sedation/analgesia, as well as any blood products, if indicated. I also explained to the patient the risks, benefits and side effects of the alternatives, as well as the risks related to not receiving the proposed procedure, care, treatment, or services. Review of Systems Constitutional: Denies chills, Denies fever Eyes: denies blurred vision Ears: right: decreased hearing (mastoidectomy right side), bilateral: tinnitus Ears, nose, mouth and throat: Reports headache, Denies sore throat Breasts: bilateral: as per HPI Cardiovascular: Denies chest pain, Denies shortness of breath Respiratory: Denies cough Gastrointestinal: Denies abdominal pain, Denies diarrhea, Denies nausea, Denies vomiting Musculoskeletal: Reports myalgias Integumentary: Denies pruritus, Denies rash Neurological: Reports numbness, Reports weakness Psychiatric: Reports anxiety Endocrine: Denies fatigue, Denies weight change Past Medical History Past Medical History: GERD/Reflux, Hyperlipidemia, Osteoarthritis (OA), Sleep Apnea/CPAP/BIPAP Additional Past Medical History / Comment(s): chronic neck and back pain, uses CPAP History of Any Multi-Drug Resistant Organisms: None Reported Past Surgical History: Back Surgery, Ear Surgery, Orthopedic Surgery Additional Past Surgical History / Comment(s): multiple lumbar and cervical back fusions, candida knee arthroscopy, candida shoulder surgeries, right ear surgery Past Anesthesia/Blood Transfusion Reactions: Previous Problems w/ Anesthesia Additional Past Anesthesia/Blood Transfusion Reaction / Comment(s): used to have a hard time waking up after anesthesia but not anymore Smoking Status: Never smoker Medications and Allergies Home Medications Medication Instructions Recorded Confirmed Type Atorvastatin [Lipitor] 20 mg PO DAILY 03/08/19 12/21/23 History Fenofibrate 40 mg PO DAILY 03/08/19 12/21/23 History Rizatriptan Benzoate [Rizatriptan] 10 mg PO DIRECTED PRN 03/08/19 12/21/23 Hi story Pregabalin [Lyrica] 150 mg PO BID 09/06/19 12/21/23 History oxyCODONE-APAP 10-325MG [Percocet 1 tab PO Q4HR PRN 09/06/19 12/21/23 History 10-325 mg] Dextroamphetamine/Amphetamine 30 mg PO BID 30 Days #60 tab 06/14/23 12/21/23 Rx [Adderall] Allergies Allergy/AdvReac Type Severity Reaction Status Date / Time morphine Allergy Rash/Hives Verified 12/21/23 08:15 Physical Exam - Constitutional General appearance: Reports average body habitus - EENT ENT: Reports hearing grossly normal - Neck Neck: Reports normal ROM - Respiratory Respiratory: bilateral: CTA - Cardiovascular Cardiac: Reports regular rhythm - Gastrointestinal General gastrointestinal: Reports soft - Integumentary Integumentary: Reports normal turgor - Musculoskeletal Musculoskeletal: Reports gait normal - Psychiatric Psychiatric: Reports A&O x's 3 - Additional Findings Additional findings: Breast Exam: Inspection: Left nipple erect, left breast larger than right breast Palpation: Right breast: Multi positional exam no masses or nodules of concern Right axilla: No adenopathy of concern Left breast: Left nipple erect, tender to palpation in the periareolar region, nodularity asymmetric to the contralateral side posterior to the nipple areolar complex and including the area of the base of the nipple and into the nipple Left axilla: No adenopathy of concern Results Mammogram and ultrasound results from June 12 reviewed Assessment and Plan Assessment: Impression: 1. Mastodynia left breast for several years 2. Erection left nipple constant 3. Fibrocystic changes in breast 4. Family history of cancer 5. High cholesterol 6. Anxiety/depression 7. Reflux 8. Persistent mass/nodularity posterior to the left nipple areolar complex which is not seen radiographically but is palpable and painful 1. Recent lumbar fusion surgery/cheri are still in place Plan: 1. Excisional biopsy/resection of left nipple areolar complex with possible oncoplastic tissue transfer Risk and benefits of the procedure discussed with the patient. Risk include but are not limited to bleeding, infection, reaction to the anesthetic. He understands that the nipple and areola will be removed without any reconstruction of those structures. They will not grow back. We may not find any pathology with the resection however it is asymmetric to the other side it is constantly painful and we are uncertain as to the cause for it. He understands and wishes to proceed. We cannot rule out malignant pathology without resection. CC: Dr. Escamilla
[2023-12-22 08:57] VITALS: BP 163/83; PULSE 98; RESP 16; TEMP 98
== END ==
LOC: WWCWWP 08:10
PROVIDERS: ATTEND Surgery
DX: N64.4 Mastodynia (principal); N64.59 Other signs and symptoms in breast; N60.11 Diffuse cystic mastopathy of right breast; N60.12 Diffuse cystic mastopathy of left breast; E78.00 Pure hypercholesterolemia, unspecified; F41.9 Anxiety disorder, unspecified; F32.A Depression, unspecified; K21.9 Gastro-esophageal reflux disease without esophagitis; Z80.3 Family history of malignant neoplasm of breast; Z98.1 Arthrodesis status; Z88.5 Allergy status to narcotic agent; Z72.0 Tobacco use

== ENCOUNTER 2023-12-26 07:22 | Day surgery (SDC) | payer OTHER ==
[~2023-12-26 07:22] MED LIST: HYDROmorphone 0.5 MG/0.5 ML SYRINGE IVP PRN; Pre Op ABX Message 1 EACH MISC MISCELLANE ONE
[2023-12-26] MEDS: LACTATED RINGERS 1,000 ML IV SCH (07:54)
[2023-12-26] MEDS: ONDANSETRON 4 MG/2 ML VIAL IVP ONE (07:58)
[2023-12-26] MEDS: ACETAMINOPHEN TAB 500 MG TAB PO PRN (07:58)
[2023-12-26] MEDS: DEXAMETHASONE SOD PHOSPHATE 4 MG/ML 1 ML VIAL IV ONE (07:58)
[2023-12-26] MEDS: HEPARIN SODIUM,PORCINE 5,000 UNIT/ML 1 ML VIAL SQ PRN (08:05)
[2023-12-26] MEDS ORDERED: fentaNYL (PF) 50 MCG/ML 2 ML AMP ONE (09:26)
[2023-12-26] MEDS ORDERED: HYDROmorphone (PF) 1 MG/ML ONE (09:26)
[2023-12-26] MEDS ORDERED: PROPOFOL 10 MG/ML 20 ML VIAL IV ONE (09:26)
[2023-12-26] MEDS ORDERED: KETOROLAC 30 MG/ML 1 ML VIAL ONE (09:26)
[2023-12-26] MEDS ORDERED: MIDAZOLAM 2 MG/2 ML VIAL ONE (09:26)
[2023-12-26] MEDS ORDERED: LIDOCAINE 1% INJ 10MG/ML (20 ML MDV) ONE (09:26)
[2023-12-26] MEDS: SODIUM CHLORIDE 0.9% 50 ML with ceFAZolin 2,000 MG IV ONE (09:28)
[2023-12-26] MEDS: LIDOCAINE 1% INJ 10MG/ML (20 ML MDV) SQ ONE ×2 (09:50)
--- NOTE | 2023-12-26 10:30 | P.BCAON ---
Date of Procedure: 12/26/23 Preoperative Diagnosis: mass left breast Postoperative Diagnosis: same Procedure(s) Performed: excision of central mass left breast with excision of niple aerolar complex, oncoplastic tissue transfer 36CM2 Anesthesia: ARIELA Surgeon: Ameena Sesay Estimated Blood Loss (ml): 5 IV fluids (ml): 800 Pathology: other (breast tissue and nipple aerolar complex) Condition: stable Disposition: same day Indications for Procedure: painful central mass left breast Operative Findings: mass left breast Description of Procedure: The patient was brought to the operating room and after induction of anesthea the left breast was prepped and draped in a sterile fashion. A periaerolar incision was made and carried down to the bres tissue. Disection was preformed sownt thepect muscle. The specimen was rmoved. It was tagged with a short stitch superior and a long stitch lateral. The lesion was 6 by 2 cm. A superior pillar 6 by 2 cm was formed. An inferior pillar 6 by 2cm was formed. The wound was irrigated. When we were assured that hemostatis was attained the wound was closed in layers. The pillars were brought together with 3-0 cvicryl. The subq tissue was closed with 3-0 vicryl. The skin was closed with 4-0 monocryl. 10 cc of 1% lidociane was injected into the incision. THe patient tolerated the procedure in stable condition.
[2023-12-26] MEDS: LACTATED RINGERS 1,000 ML IV ONE (10:40)
[2023-12-26 11:24] VITALS: TEMP 96.3
[2023-12-26 12:10] VITALS: BP 131/86; PULSE 77; RESP 16
== END 2023-12-26 12:17 | disposition home or self-care (01) ==
LOC: OR 07:22
PROVIDERS: ATTEND Surgery
DX: N63.42 Unspecified lump in left breast, subareolar (principal); L30.9 Dermatitis, unspecified; N63.20 Unspecified lump in the left breast, unspecified quadrant
CPT/HCPCS: 88307; 19120; J2250; J1644; J1100; J2405; J0690; J2001; J3010; J1885; J1170; J2704

== ENCOUNTER → 2024-01-04 | Outpatient (CLI) | payer OTHER ==
--- NOTE | 2024-01-04 12:14 | P.BCPO ---
Progress Note - Text Progress Note Date: 01/04/24 Mr. Solis is a 53-year-old gentleman status post left breast tissue excision on 12-26-2023. Pathology revealed rare features suggestive of gynecomastia/a lipoma in differential diagnosis. The patient postoperatively has done well, developed a dermatitis-like reaction near the site of the incision where he had placed a Tegaderm. Fever or chills. He has minimal discomfort. Examination: Lungs: Clear Heart: Regular rate and rhythm Incision: There is erythema and a rash at the site where his Tegaderm was placed and it appears that he may have some reaction to the skin glue, stoma present Impression: The reaction to the surgical glue/dressing at his left breast surgical site Plan: Patient seroma Following consent the area of concern was prepped using alcohol approximately 180 cc of serous fluid was removed with resolution of the seroma this was an 18- gauge needle with a 20 cc syringe. 3 nylon sutures were placed to reinforce the incision The patient was instructed not have a dressing over the site, no tape at the site, if he should desire a dressing then an Dimas wrap should be used to hold it in place. Patient was instructed to get [id number] steroid cream and utilize it at the area of itching and erythema related to the Tegaderm Patient will follow-up next week Patient will follow-up sooner any questions or concerns
[2024-01-04 13:08] VITALS: BP 125/83; PULSE 73; RESP 17; TEMP 98.9
== END ==
LOC: WWCWWP 11:15
PROVIDERS: ATTEND Surgery
DX: L30.9 Dermatitis, unspecified (principal); R50.9 Fever, unspecified; L53.8 Other specified erythematous conditions; R21 Rash and other nonspecific skin eruption; L76.33 Postprocedural seroma of skin and subcutaneous tissue following a dermatologic procedure; Z98.890 Other specified postprocedural states; Z88.5 Allergy status to narcotic agent

== ENCOUNTER → 2024-01-09 | Outpatient (CLI) | payer OTHER ==
--- NOTE | 2024-01-09 08:34 | P.CON ---
Consult Note - . Consult date: 01/09/24 Assessment/Plan:: Mr. Solis is a 53-year-old gentleman status post left breast tissue excision on 12-26-2023. Pathology revealed rare features suggestive of gynecomastia/a lipoma in differential diagnosis. The patient postoperatively has done well, developed a dermatitis-like reaction near the site of the incision where he had placed a Tegaderm. Fever or chills. He has minimal discomfort. Psych reaction has resolved since I saw him last. Examination: Incision: Clean and dry, sutures are in place, these will be left at this time Resolution of erythema which was present last week related to the Tegaderm Seroma remains present Impression: The reaction to the surgical glue/dressing at his left breast surgical site proved Plan: Patient seroma Following consent the area of concern was prepped using alcohol approximately 35 cc of serous fluid was somewhat thick was removed with resolution of the seroma this was an 18-gauge needle with a 20 cc syringe. 3 nylon sutures were placed to reinforce the incision's last visit these remain in place The patient was instructed not have a dressing over the site, no tape at the site, if he should desire a dressing then an Dimas wrap should be used to hold it in place. Patient was instructed to get [id number] steroid cream and utilize it at the area of itching and erythema related to the Tegaderm Patient will follow-up in 3 days Secondary to the turbid nature of the aspirated has been sent for culture Prophylactic antibiotic/Keflex Patient will follow-up sooner any questions or concerns
[2024-01-09 09:42] VITALS: BP 127/76; PULSE 76; RESP 16; TEMP 97.4
== END ==
LOC: WWCWWP 07:58
PROVIDERS: ATTEND Surgery
DX: L30.9 Dermatitis, unspecified (principal); R68.83 Chills (without fever); L76.82 Other postprocedural complications of skin and subcutaneous tissue; Z98.890 Other specified postprocedural states; Z88.5 Allergy status to narcotic agent

== ENCOUNTER → 2024-01-12 | Outpatient (CLI) | payer OTHER ==
--- NOTE | 2024-01-12 08:48 | P.CON ---
Consult Note - . Consult date: 01/12/24 Assessment/Plan:: Assessment/Plan:: Mr. Solis is a 53-year-old gentleman status post left breast tissue excision on 12-26-2023. Pathology revealed rare features suggestive of gynecomastia/a lipoma in differential diagnosis. The patient postoperatively has done well, developed a dermatitis-like reaction near the site of the incision where he had placed a Tegaderm. N o fever or chills. He has minimal discomfort. Skin reaction has resolved since I saw him last. A seroma was aspirated on his last visit. Cultures were (-). Examination: Incision: Clean and dry, sutures are in place Resolution of erythema which was present last week related to the Tegaderm Small seroma present Impression: The reaction to the surgical glue/dressing at his left breast surgical site resolved Sutures removed Aspiration of seroma Plan: Patient with left breast seroma Following consent the area of concern was prepped using alcohol approximately 20 cc of sanguinous fluid was removed with resolution of the seroma this was an 18- gauge needle with a 20 cc syringe. 3 nylon sutures were removed The patient was instructed not have a dressing over the site, no tape at the site, if he should desire a dressing then an Dimas wrap should be used to hold it in place. Patient was instructed to get [id number] steroid cream and utilize it at the area of itching and erythema related to the Tegaderm Patient will follow-up in 2 weeks Patient will follow-up sooner any questions or concerns
[2024-01-12 09:05] VITALS: BP 133/86; PULSE 69; RESP 17; TEMP 97.8
== END ==
LOC: WWCWWP 07:49
PROVIDERS: ATTEND Surgery
DX: L30.9 Dermatitis, unspecified (principal); L76.33 Postprocedural seroma of skin and subcutaneous tissue following a dermatologic procedure; Z98.890 Other specified postprocedural states; Z88.5 Allergy status to narcotic agent

== ENCOUNTER → 2024-03-27 | Outpatient (CLI) | payer OTHER | LOC: 3 N SLEEP 11:05 | PROVIDERS: ATTEND Internal Medicine | CPT/HCPCS: 99212 ==

== ENCOUNTER → 2024-07-26 | Outpatient (CLI) | payer OTHER ==
--- NOTE | 2024-07-26 12:19 | P.PN ---
Subjective Progress Note Date: 07/26/24 Principal diagnosis: gynecomastia Principal diagnosis: Bruno is a 53 year old man seen in consultation for Dr. Escamilla regarding breast pain. The patient was seen initially approximately 3 years ago with complaint of pain in the left breast. Since that time the pain has not stopped and has actually gotten worse. He states that the nodularity is persistent behind the left nipple areolar complex and has increased in intensity of pain and size. His had never had any surgery on his breast. Is not complaining of any recent trauma or infection in the breast. The nipple stayed erect most of the time on the left breast and is tender. He had not had any changes in any medications. He states that it is worse when it is hot and humid. The right side does not cause him any discomfort. It is always painful. It has not improved. The patient would like to have an excisional resection of the nipple areolar complex on the left secondary to the pain and discomfort. Additionally the patient has concerns regarding the possibility of malignancy of the nipple areolar complex on the left. bilateral mammogram 05-23-23 BIRAD 1 ultrasound left 06-02-23 no lesions of concern testosterone: 95.5 WNL estrogen: 62 WNL 07-26-24 The patient on 12-26-23 underwent surgical resection of the area of concern. Pathology showed gynecomastia/lipoma in the differential diagnosis. At this time he complains of some persistent discomfort in the upper outer quadrant area of the left breast residual tissue but much decreased than prior to the surgery. He is not complaining of any new lumps masses or nodules of concern in either breast or on either chest wall. Caffeine: Negative Nicotine: Negative Chocolate: Occasional Hormones: Negative Family History: mother: lung cancer smoker sister: small cell lung cancer, brain cancer smoker paternal grandmother: scalp cancer Surgical history: cervical and lumbar fusions bilateral shoulder and knee surgery Right mastoidectomy lumbar fusion in June 2019 T12-S1 lumbar surgery 2022 healed at this time Medical history: 1. High cholesterol 2. reflux on omeprazole 3. used a cane in the past Social history: Smoke: Used to chew tobacco does not smoke now Alcohol: Negative Drugs: Negative - Constitutional Comment: BMI 28 Constitutional: Denies chills, Denies fever - EENT Comment: wears glasses Eyes: bilateral decreased vision, denies pain Ears: right: decreased hearing, bilateral: tinnitus Ears, nose, mouth and throat: Reports headache, Denies sore throat - Breasts Breasts: bilateral: as per HPI - Cardiovascular Comment: High cholesterol Cardiovascular: Denies chest pain, Denies shortness of breath - Respiratory Respiratory: Denies cough - Gastrointestinal Comment: reflux - Genitourinary (Male) Genitourinary: Denies dysuria, Denies hematuria - Musculoskeletal Comment: Cervical and lumbar disc disease - Integumentary Integumentary: Denies pruritus, Denies rash - Neurological Neurological: Reports numbness, Reports weakness - Psychiatric Psychiatric: Reports anxiety, Reports depression - Endocrine Endocrine: Denies fatigue, Denies weight change - Hematologic/Lymphatic Comment: none - Allergic/Immunologic Allergic/Immunologic: Reports as per HPI Past Medical History History of Any Multi-Drug Resistant Organisms: None Reported Smoking Status: Never smoker Consent for Procedure: I have explained the operation/procedure to the patient, including the risks, benefits, side effects, alternative therapies (including not receiving the proposed treatment or service), the likelihood of the patient achieving his/her goals, and potential recuperation problems for the procedure/sedation/analgesia, as well as any blood products, if indicated. I also explained to the patient the risks, benefits and side effects of the alternatives, as well as the risks related to not receiving the proposed procedure, care, treatment, or services. Review of Systems Constitutional: Denies chills, Denies fever Eyes: denies blurred vision Ears: right: decreased hearing (mastoidectomy right side), bilateral: tinnitus Ears, nose, mouth and throat: Reports headache, Denies sore throat Breasts: bilateral: as per HPI Cardiovascular: Denies chest pain, Denies shortness of breath Respiratory: Denies cough Gastrointestinal: Denies abdominal pain, Denies diarrhea, Denies nausea, Denies vomiting Musculoskeletal: Reports myalgias Integumentary: Denies pruritus, Denies rash Neurological: Reports numbness, Reports weakness Psychiatric: Reports anxiety Endocrine: Denies fatigue, Denies weight change Past Medical History Past Medical History: GERD/Reflux, Hyperlipidemia, Osteoarthritis (OA), Sleep Apnea/CPAP/BIPAP Additional Past Medical History / Comment(s): chronic neck and back pain, uses CPAP History of Any Multi-Drug Resistant Organisms: None Reported Past Surgical History: Back Surgery, Ear Surgery, Orthopedic Surgery Additional Past Surgical History / Comment(s): multiple lumbar and cervical back fusions, candiad knee arthroscopy, candida shoulder surgeries, right ear surgery Past Anesthesia/Blood Transfusion Reactions: Previous Problems w/ Anesthesia Additional Past Anesthesia/Blood Transfusion Reaction / Comment(s): used to have a hard time waking up after anesthesia but not anymore Smoking Status: Never smoker Medications and Allergies Home Medications Medication Instructions Recorded Confirmed Type Atorvastatin [Lipitor] 20 mg PO DAILY 03/08/19 12/21/23 History Fenofibrate 40 mg PO DAILY 03/08/19 12/21/23 History Rizatriptan Benzoate [Rizatriptan] 10 mg PO DIRECTED PRN 03/08/19 12/21/23 History Pregabalin [Lyrica] 150 mg PO BID 09/06/19 12/21/23 History oxyCODONE-APAP 10-325MG [Percocet 1 tab PO Q4HR PRN 09/06/19 12/21/23 History 10-325 mg] Dextroamphetamine/Amphetamine 30 mg PO BID 30 Days #60 tab 06/14/23 12/21/23 Rx [Adderall] Allergies Allergy/AdvReac Type Severity Reaction Status Date / Time morphine Allergy Rash/Hives Verified 12/21/23 08:15 Objective - Constitutional General appearance: Present: cooperative - EENT Eyes: Present: EOMI ENT: Present: hearing grossly normal - Neck Neck: Present: normal ROM - Respiratory Respiratory: bilateral: CTA - Cardiovascular Rhythm: regular Heart sounds: normal: S1, S2 - Integumentary Integumentary: Present: normal turgor - Musculoskeletal Musculoskeletal: Present: gait normal - Psychiatric Psychiatric: Present: A&O x's 3, appropriate affect, intact judgment & insight - Additional findings Additional findings: Breast Exam: Inspection: Scar left breast where the nipple areolar complex has been resected Palpation: Right breast: Multi positional exam no masses or nodules of concern Right axilla: No adenopathy of concern Left breast: scar Left breast where nipple areolar complex has been resected, multi positional exam no dominant masses or nodules of concern Left axilla: No adenopathy of concern Assessment and Plan Assessment: Impression: Breast gynecomastia/lipoma resected lens generating machine tender upper outer quadrant left breast Plan: 1. Breast ultrasound and follow-up after this is done CC: Dr. Escamilla
[2024-07-26 12:25] VITALS: BP 129/85; PULSE 83; RESP 17; TEMP 97.3
== END ==
LOC: WWCWWP 11:49
PROVIDERS: ATTEND Surgery
DX: N62 Hypertrophy of breast (principal); N64.4 Mastodynia; Z88.5 Allergy status to narcotic agent

== ENCOUNTER → 2024-10-25 | Outpatient (CLI) | payer OTHER ==
[2024-10-25 10:54] VITALS: BP 174/77; PULSE 109; RESP 16; TEMP 98.3
--- NOTE | 2024-10-25 11:09 | P.PN ---
Subjective Progress Note Date: 10/25/24 Principal diagnosis: left breast gynecomastia 10-25-24 Principal diagnosis: gynecomastia Principal diagnosis: Bruno is a 53 year old man seen in consultation for Dr. Escamilla regarding breast pain. The patient was seen initially approximately 3 years ago with complaint of pain in the left breast. Since that time the pain has not stopped and has actually gotten worse. He states that the nodularity is persistent behind the left nipple areolar complex and has increased in intensity of pain and size. His had never had any surgery on his breast. Is not complaining of any recent trauma or infection in the breast. The nipple stayed erect most of the time on the left breast and is tender. He had not had any changes in any medications. He states that it is worse when it is hot and humid. The right side does not cause him any discomfort. It is always painful. It has not improved. The patient would like to have an excisional resection of the nipple areolar complex on the left secondary to the pain and discomfort. Additionally the patient has concerns regarding the possibility of malignancy of the nipple areolar complex on the left. bilateral mammogram 05-23-23 BIRAD 1 ultrasound left 06-02-23 no lesions of concern testosterone: 95.5 WNL estrogen: 62 WNL 07-26-24 The patient on 12-26-23 underwent surgical resection of the area of concern. Pathology showed gynecomastia/lipoma in the differential diagnosis. At this time he complains of some persistent discomfort in the upper outer quadrant area of the left breast residual tissue but much decreased than prior to the surgery. He is not complaining of any new lumps masses or nodules of concern in either breast or on either chest wall. 10-25-24 Bruno is status post resection of the left breast nipple aerolar complex on 12-25 it was benign gynecomastia. He had a left breast ultrasound on 10-03-24 which showed a fluid collection 2.8 x 2.3 cm near the surgical resection site. The patient has persistent discomfort at that site but it is much better than prior to the surgery. He is not complaining of any discomfort in the right breast. Complaining of any new lumps masses or nodules of concern in either breast. Does not complain of any testicular lumps masses or nodules. Caffeine: Negative Nicotine: Negative Chocolate: Occasional Hormones: Negative Family History: mother: lung cancer smoker sister: small cell lung cancer, brain cancer smoker paternal grandmother: scalp cancer Surgical history: cervical and lumbar fusions bilateral shoulder and knee surgery Right mastoidectomy lumbar fusion in June 2019 T12-S1 lumbar surgery 2022 healed at this time Medical history: 1. High cholesterol 2. reflux on omeprazole 3. used a cane in the past, not needed at this time for shorter distances Social history: Smoke: Used to chew tobacco does not smoke now Alcohol: Negative Drugs: Negative - Constitutional Comment: BMI 28 Constitutional: Denies chills, Denies fever - EENT Comment: wears glasses Eyes: bilateral decreased vision, denies pain Ears: right: decreased hearing, bilateral: tinnitus Ears, nose, mouth and throat: Reports headache, Denies sore throat - Breasts Breasts: bilateral: as per HPI - Cardiovascular Comment: High cholesterol Cardiovascular: Denies chest pain, Denies shortness of breath - Respiratory Respiratory: Denies cough - Gastrointestinal Comment: reflux - Genitourinary (Male) Genitourinary: Denies dysuria, Denies hematuria - Musculoskeletal Comment: Cervical and lumbar disc disease - Integumentary Integumentary: Denies pruritus, Denies rash - Neurological Neurological: Reports numbness, Reports weakness - Psychiatric Psychiatric: Reports anxiety, Reports depression - Endocrine Endocrine: Denies fatigue, Denies weight change - Hematologic/Lymphatic Comment: none - Allergic/Immunologic Allergic/Immunologic: Reports as per HPI Past Medical History History of Any Multi-Drug Resistant Organisms: None Reported Smoking Status: Never smoker Consent for Procedure: I have explained the operation/procedure to the patient, including the risks, benefits, side effects, alternative therapies (including not receiving the proposed treatment or service), the likelihood of the patient achieving his/her goals, and potential recuperation problems for the procedure/sedation/analgesia, as well as any blood products, if indicated. I also explained to the patient the risks, benefits and side effects of the alternatives, as well as the risks related to not receiving the proposed procedure, care, treatment, or services. Review of Systems Constitutional: Denies chills, Denies fever Eyes: denies blurred vision Ears: right: decreased hearing (mastoidectomy right side), bilateral: tinnitus Ears, nose, mouth and throat: Reports headache, Denies sore throat Breasts: bilateral: as per HPI Cardiovascular: Denies chest pain, Denies shortness of breath Respiratory: Denies cough Gastrointestinal: Denies abdominal pain, Denies diarrhea, Denies nausea, Denies vomiting Musculoskeletal: Reports myalgias Integumentary: Denies pruritus, Denies rash Neurological: Reports numbness, Reports weakness Psychiatric: Reports anxiety Endocrine: Denies fatigue, Denies weight change Past Medical History Past Medical History: GERD/Reflux, Hyperlipidemia, Osteoarthritis (OA), Sleep Apnea/CPAP/BIPAP Additional Past Medical History / Comment(s): chronic neck and back pain, uses CPAP History of Any Multi-Drug Resistant Organisms: None Reported Past Surgical History: Back Surgery, Ear Surgery, Orthopedic Surgery Additional Past Surgical History / Comment(s): multiple lumbar and cervical back fusions, candida knee arthroscopy, candida shoulder surgeries, right ear surgery Past Anesthesia/Blood Transfusion Reactions: Previous Problems w/ Anesthesia Additional Past Anesthesia/Blood Transfusion Reaction / Comment(s): used to have a hard time waking up after anesthesia but not anymore Smoking Status: Never smoker Medications and Allergies Home Medications Medication Instructions Recorded Confirmed Type Atorvastatin [Lipitor] 20 mg PO DAILY 03/08/19 12/21/23 History Fenofibrate 40 mg PO DAILY 03/08/19 12/21/23 History Rizatriptan Benzoate [Rizatriptan] 10 mg PO DIRECTED PRN 03/08/19 12/21/23 History Pregabalin [Lyrica] 150 mg PO BID 09/06/19 12/21/23 History oxyCODONE-APAP 10-325MG [Percocet 1 tab PO Q4HR PRN 09/06/19 12/21/23 History 10-325 mg] Dextroamphetamine/Amphetamine 30 mg PO BID 30 Days #60 tab 06/14/23 12/21/23 Rx [Adderall] Allergies Allergy/AdvReac Type Severity Reaction Status Date / Time morphine Allergy Rash/Hives Verified 12/21/23 08:15 Objective - Vital Signs Vital signs: Vital Signs Temp 98.3 F 10/25/24 10:53 Pulse 109 H 10/25/24 10:53 Resp 16 10/25/24 10:53 BP 174/77 10/25/24 10:53 Pulse Ox 99 10/25/24 10:53 FiO2 Intake & Output 10/24/24 10/25/24 10/25/24 18:59 06:59 18:59 Weight 90.718 kg - Constitutional General appearance: Present: cooperative - EENT Eyes: Present: EOMI ENT: Present: hearing grossly normal - Neck Neck: Present: normal ROM - Respiratory Respiratory: bilateral: CTA - Cardiovascular Rhythm: regular Heart sounds: normal: S1, S2 - Integumentary Integumentary: Present: normal turgor - Musculoskeletal Musculoskeletal: Present: gait normal - Psychiatric Psychiatric: Present: A&O x's 3, appropriate affect, intact judgment & insight - Additional findings Additional findings: Breast Exam: Inspection: Scar left breast where the nipple areolar complex has been resected Palpation: Right breast: Multi positional exam no masses or nodules of concern Right axilla: No adenopathy of concern Left breast: scar Left breast where nipple areolar complex has been resected, multi positional exam no dominant masses or nodules of concern, slight tender at surgical site Left axilla: No adenopathy of concern Assessment and Plan Assessment: Impression: Breast gynecomastia/lipoma resected ultrasound left breast 10-03-24 BIRAD 3 Plan: 1. left breast ultrasound March 2025 with appointment at that time 2. call sooner any concerns CC: Dr. Escamilla
== END ==
LOC: WWCWWP 10:31
PROVIDERS: ATTEND Surgery
DX: N62 Hypertrophy of breast (principal); N64.4 Mastodynia; K21.9 Gastro-esophageal reflux disease without esophagitis; E78.5 Hyperlipidemia, unspecified; M19.90 Unspecified osteoarthritis, unspecified site; G47.30 Sleep apnea, unspecified; Z88.5 Allergy status to narcotic agent; Z79.02 Long term (current) use of antithrombotics/antiplatelets